=== PATIENT | male | born 1950 | race Caucasian/White ===

== ENCOUNTER 2016-09-11 05:25 | Day surgery (SDC) | payer MEDICARE, MEDICAID ==
[~2016-09-11] VITALS: Ht 186.7 cm; Wt 87.1 kg
[~2016-09-11 05:25] MED LIST: AMLO5TAB4 PO; ASCO500C15 PO; ASPI-867 PO; BENZ1TAB7 PO; CARB1TAB9 PO; DEPER5 PO; FINA5TAB11 PO; LEVE750T4 PO; METF500T4 PO; MULT-1223 PO; OMEP20TA80 PO; SITA100T6 PO; TAMS-11 PO; ZIPR80CA2 PO
[2016-09-11] MEDS ORDERED: TROPICAMIDE 1% OPHTH DROPS 15ML RIGHTEYE ONE (06:10)
[2016-09-11] MEDS ORDERED: PHENYLEPHRINE 2.5% OPHTH 15 DROP/ML BOTTLE RIGHTEYE ONE (06:10)
[2016-09-11 06:13] LABS: EOSINOPHILS % 2.8 % (0.0-5.0); HEMATOCRIT. 39.7 % (42.0-52.0); HEMOGLOBIN. 13.7 g/dL (14.0-18.0); LYMPHOCYTES % 33.5 % (20.0-50.0); MEAN CORPUSCULAR HEMOGLOBIN 30.6 pg (28.0-32.0); MEAN CORPUSCULAR HGB CONC 34.5 g/dL (31.0-37.0); MEAN CORPUSCULAR VOLUME 88.8 fL (80.0-94.0); MEAN PLATELET VOLUME 8.3 fl (7.4-10.4); MONOCYTES % 12.5 % (2.0-8.0); NEUTROPHILS % 50.2 % (40.0-76.0); PLATELET 121 x1000/uL (130-400); RED BLOOD CELL COUNT 4.47 mill/uL (4.7-6.1); RED CELL DISTRIBUTION WIDTH 14.4 % (11.6-14.6); WHITE BLOOD COUNT 3.9 x1000/uL (4.5-11.0)
[2016-09-11] MEDS ORDERED: SODIUM CHLORIDE 0.9% 1,000 ML IV SCH (06:45)
[2016-09-11] MEDS ORDERED: HYALURONATE SODIUM 14 MG/ML 0.85ML SYRINGE IO ONE (07:11)
[2016-09-11] MEDS ORDERED: TOBRAMYCIN SULFATE 80MG/2ML 30ML ONE (07:11)
[2016-09-11] MEDS ORDERED: TOBRAMYCIN/DEXAMETH 0.1/0.3% OPHTH SUSP 2.5ML ONE (07:14)
[2016-09-11] MEDS ORDERED: METHYLPREDNISOLONE SOD SUCC 40 MG/ML VIAL ONE (07:15)
[2016-09-11] MEDS ORDERED: HOMATROPINE HBR 5% OPHTH 5ML ONE (07:16)
[2016-09-11] MEDS ORDERED: BALANCED SALT IRRIG SOLN COMB1 500ML OP ONE (07:30)
[2016-09-11] MEDS ORDERED: LIDOCAINE HCL/PF 2% 20MG/ML 5 ML/VIAL ONE (07:34)
[2016-09-11] MEDS ORDERED: MIDAZOLAM HCL 2 MG/2 ML VIAL ONE (07:51)
[2016-09-11] MEDS ORDERED: FENTANYL CITRATE/PF 50MCG/ML 2ML VIAL ONE (07:55)
[2016-09-11] MEDS ORDERED: PROPOFOL 200MG/20ML VIAL IV ONE (07:58)
[2016-09-11] MEDS ORDERED: LIDOCAINE HCL 1% 20ML VIAL (Pyxis) INJ ONE (07:58)
[2016-09-11] MEDS ORDERED: ONDANSETRON HCL 4MG/2ML VIAL ONE (08:28)
[2016-09-11] MEDS ORDERED: ONDANSETRON HCL 4MG/2ML VIAL IV PRN (08:30)
[2016-09-11] MEDS ORDERED: MORPHINE SULFATE 2 MG/ML CPJ (NOT FOR IM USE) IV PRN (08:30)
[2016-09-11] MEDS ORDERED: BUPIVACAINE HCL/PF 0.75% (7.5MG/ML) 10ML ONE (11:04)
[2016-09-11] MEDS ORDERED: PHENYLEPHRINE HCL 2.5% OPHTH DROPS 2ML ONE (11:04)
[2016-09-11] MEDS ORDERED: TROPICAMIDE 1% OPHTH DROPS 15ML ONE (11:04)
[2016-09-11] MEDS ORDERED: ACETYLCHOLINE CHLORIDE INTRAOCULAR SOLUTION 1:100 ELECTROLYTE DILUENT IO ONE (11:04)
[2016-09-11] MEDS ORDERED: BALANCED SALT IRRIG SOLN 15ML ONE (11:04)
[2016-09-11] MEDS ORDERED: TETRACAINE 0.5% OPHTH DROPS 4ML ONE (11:04)
== END 2016-09-11 10:40 | disposition home or self-care (01) ==
LOC: OR 05:25
PROVIDERS: ATTEND Ophthalmology
DX: E11.36 Type 2 diabetes mellitus with diabetic cataract (principal); I10 Essential (primary) hypertension; E11.9 Type 2 diabetes mellitus without complications; F31.9 Bipolar disorder, unspecified; F20.9 Schizophrenia, unspecified; K21.9 Gastro-esophageal reflux disease without esophagitis; G40.909 Epilepsy, unspecified, not intractable, without status epilepticus; Z79.82 Long term (current) use of aspirin
CPT/HCPCS: 36415; 66984; 80051; 82947; 84520; 85025; 93005; J2250; J2405; J3010; J3490; J7030; V2632; J2704; J2920; J3260

== ENCOUNTER 2016-12-18 05:33 | Day surgery (SDC) | payer MEDICARE ==
[~2016-12-18] VITALS: Ht 186.7 cm; Wt 87.1 kg
[~2016-12-18 05:33] MED LIST changes: +VALS80TA25 PO
[2016-12-18] MEDS ORDERED: PHENYLEPHRINE 2.5% OPHTH 15 DROP/ML BOTTLE LEFTEYE ONE (06:00)
[2016-12-18] MEDS ORDERED: TROPICAMIDE 1% OPHTH DROPS 15ML LEFTEYE ONE (06:00)
[2016-12-18 06:45] LABS: BASOPHILS % 0.9 % (0.0-2.0); EOSINOPHILS % 1.4 % (0.0-5.0); HEMATOCRIT. 38.6 % (42.0-52.0); HEMOGLOBIN. 13.2 g/dL (14.0-18.0); LYMPHOCYTES % 16.8 % (20.0-50.0); MEAN CORPUSCULAR VOLUME 90.9 fL (80.0-94.0); MEAN PLATELET VOLUME 8.5 fl (7.4-10.4); NEUTROPHILS % 70.9 % (40.0-76.0); PLATELET 111 x1000/uL (130-400); RED BLOOD CELL COUNT 4.24 mill/uL (4.7-6.1); RED CELL DISTRIBUTION WIDTH 14.5 % (11.6-14.6)
[2016-12-18] MEDS ORDERED: BALANCED SALT IRRIG SOLN COMB1 500ML OP SCH (07:00)
[2016-12-18] MEDS ORDERED: LACTATED RINGERS 1,000 ML IV SCH (07:00)
[2016-12-18] MEDS ORDERED: HYALURONATE SODIUM 14 MG/ML 0.85ML SYRINGE IO ONE (07:05)
[2016-12-18] MEDS ORDERED: HOMATROPINE HBR 5% OPHTH 5ML ONE (07:13)
[2016-12-18] MEDS ORDERED: METHYLPREDNISOLONE SOD SUCC 40 MG/ML VIAL ONE (07:14)
[2016-12-18] MEDS ORDERED: TOBRAMYCIN/DEXAMETH 0.1/0.3% OPHTH SUSP 2.5ML ONE (07:14)
[2016-12-18] MEDS ORDERED: FENTANYL CITRATE/PF 50MCG/ML 2ML VIAL ONE (07:34)
[2016-12-18] MEDS ORDERED: MIDAZOLAM HCL 2 MG/2 ML VIAL ONE (07:34)
[2016-12-18] MEDS ORDERED: PROPOFOL 200MG/20ML VIAL IV ONE (08:57)
[2016-12-18] MEDS ORDERED: ACETAMINOPHEN WITH CODEINE 300/30MG TABLET PO PRN (10:00)
[2016-12-18] MEDS ORDERED: BALANCED SALT IRRIG SOLN 15ML ONE (11:09)
[2016-12-18] MEDS ORDERED: LIDOCAINE HCL/PF 2% 20 MG/ML 10ML VIAL ONE (11:09)
[2016-12-18] MEDS ORDERED: ACETYLCHOLINE CHLORIDE INTRAOCULAR SOLUTION 1:100 ELECTROLYTE DILUENT IO ONE (11:09)
[2016-12-18] MEDS ORDERED: TETRACAINE 0.5% OPHTH DROPS 4ML ONE (11:09)
[2016-12-18] MEDS ORDERED: BUPIVACAINE HCL/PF 0.75% (7.5MG/ML) 10ML ONE (11:09)
== END 2016-12-18 10:45 | disposition home or self-care (01) ==
LOC: OR 05:33
PROVIDERS: ATTEND Ophthalmology
DX: E11.36 Type 2 diabetes mellitus with diabetic cataract (principal); H26.9 Unspecified cataract; K21.9 Gastro-esophageal reflux disease without esophagitis; F20.9 Schizophrenia, unspecified; I10 Essential (primary) hypertension; G40.909 Epilepsy, unspecified, not intractable, without status epilepticus
CPT/HCPCS: 36415; 66984; 80051; 82947; 84520; 85025; 93005; J2250; J3010; J3490; J7120; V2632; J2704; J2920